=== PATIENT | female | born 1965 | race Caucasian/White ===

== ENCOUNTER 2022-07-09 08:17 | Outpatient (CLI) | payer BC, SELFPAY ==
[2022-07-09 10:41] LABS: Chloride* 106 mmol/L (96-114)
[2022-07-09 10:42] LABS: Potassium* 4.5 mmol/L (3.6-5.1); Sodium* 141 mmol/L (135-149)
[2022-07-09 10:44] LABS: Cholesterol* 217 mg/dL (90-199); Creatinine* 0.8 mg/dL (0.5-1.5); Estimated Glomerular Filt Rate 86 ml/min
[2022-07-09 10:45] LABS: Blood Urea Nitrogen* 18 mg/dL (7-30); Calcium* 9.6 mg/dL (8.4-10.6); Glucose* 99 mg/dL (60-115); HDL Cholesterol* 67 mg/dL (>=50); LDL Cholesterol Calculated 131 mg/dL (<100); Triglycerides* 96 mg/dL (40-149)
[2022-07-09 11:00] LABS: Carbon Dioxide* 29 mmol/L (20-32)
== END 2022-07-09 08:18 | disposition home or self-care (01) ==
PROVIDERS: PCP Emergency Medicine; Visit Provider Emergency Medicine
DX: R73.01 Impaired fasting glucose (principal); Z13.6 Encounter for screening for cardiovascular disorders
CPT/HCPCS: 80048; 80061

== ENCOUNTER 2022-07-29 15:22 | Outpatient (CLI) | payer BC, SELFPAY ==
--- NOTE | 2022-07-29 15:30 | CRLHL7_ITS ---
For Patients: As a result of the Century Cures Act, medical imaging exams and procedure reports are released immediately into your electronic medical record. You may view this report before your referring provider. If you have questions, please contact your health care provider. INDICATION: Left lower quadrant abdominal pain.. TECHNIQUE: CT abdomen and pelvis acquired with 74 cc Isovue 370 IV contrast. COMPARISON: None. FINDINGS: Lower chest: Unremarkable. Liver: Unremarkable. Normal in size and attenuation. No suspicious masses. Gallbladder and bile ducts: Unremarkable. No stones or inflammation. No biliary dilatation. Pancreas: Unremarkable. No mass or inflammation. Spleen: Unremarkable. Normal in size. No masses. Adrenal glands: Unremarkable. No nodules. Kidneys: Unremarkable. No suspicious masses, stones, or hydronephrosis. GI tract: No bowel obstruction identified. Normal appendix. Vasculature: Abdominal aorta is normal in caliber. Mesenteric arteries are patent. Lymph nodes: No lymphadenopathy. Peritoneum/Abdominal Wall: 1.4 centimeter ovoid structure in the left lateral abdomen adjacent to the proximal sigmoid colon. Peripheral rim hyperdensity with central dot. Findings consistent with epiploic appendagitis. No sign of mass or infiltration. No free air or significant free fluid. Pelvis: Unremarkable. Bones: Unremarkable for age. IMPRESSION: Epiploic appendagitis along the proximal sigmoid colon. Please note that all CT scans at this facility use dose modulation, iterative reconstruction, and/or weight-based dosing when appropriate to reduce radiation dose to as low as reasonably achievable. Dictated by Maris Louis MD @ 07/29/2022 6:06:18 PM (Electronically Signed)
== END 2022-07-29 15:23 | disposition home or self-care (01) ==
PROVIDERS: PCP Emergency Medicine; Visit Provider Nurse Practitioner Family
DX: R10.32 Left lower quadrant pain (principal); K63.89 Other specified diseases of intestine
CPT/HCPCS: 74177; 85025; Q9967

== ENCOUNTER 2022-09-09 13:03 | Outpatient (CLI) | payer BC, SELFPAY ==
--- NOTE | 2022-09-09 13:20 | CRLHL7_ITS ---
For Patients: As a result of the Century Cures Act, medical imaging exams and procedure reports are released immediately into your electronic medical record. You may view this report before your referring provider. If you have questions, please contact your health care provider. BILATERAL SCREENING MAMMOGRAM WITH COMPUTER-AIDED DETECTION AND TOMOSYNTHESIS TECHNIQUE: CC and MLO views were obtained. These mammographic images have been obtained using full-field digital technique. These mammographic images were interpreted with the benefit of computer-aided detection. Breast Tomosynthesis was used in this interpretation. COMPARISON FILM: 06/11/21, 07/09/16, 05/23/14. FINDINGS: The breasts are heterogeneously dense, which may obscure small masses. IMPRESSION: There is no radiographic evidence for malignancy. ASSESSMENT: BI-RADS Category 2: Benign RECOMMENDATION: Routine screening mammogram in 1 year. A lay language report of this examination will be provided to the patient. Tee Lema M.D. Diagnostic Radiologist [email or web address] Transcribed: 1:06 p.m. PT/Dictated by: Tee Lema MD @ 09/10/2022 11:18:00 AM (Electronically Signed)
== END 2022-09-09 13:04 | disposition home or self-care (01) ==
LOC: MAMMO 13:05
PROVIDERS: PCP Emergency Medicine; Visit Provider Emergency Medicine
DX: Z12.31 Encounter for screening mammogram for malignant neoplasm of breast (principal); R92.2 Inconclusive mammogram
CPT/HCPCS: 77063; 77067

== ENCOUNTER 2022-10-10 12:00 | Outpatient (CLI) | payer BC, SELFPAY | END 2022-10-10 12:01 | disposition home or self-care (01) | LOC: OP CLINIC 12:00 | PROVIDERS: PCP Emergency Medicine; Visit Provider Internal Medicine | DX: Z12.11 Encounter for screening for malignant neoplasm of colon (principal) | CPT/HCPCS: 45378; J2250; J3010 ==

== ENCOUNTER 2023-01-08 11:10 | Outpatient (CLI) | payer BC, SELFPAY ==
[2023-01-08 13:52] LABS: Strep A DNA Probe* NOT DETECTED (Not Detectd)
== END 2023-01-08 11:11 | disposition home or self-care (01) ==
LOC: KYNREF 11:10
PROVIDERS: PCP Emergency Medicine; Visit Provider Nurse Practitioner Family
DX: J02.9 Acute pharyngitis, unspecified (principal)
CPT/HCPCS: 87651

== ENCOUNTER 2023-07-08 13:43 | Outpatient (CLI) | payer BC, SELFPAY | END 2023-07-08 13:44 | disposition home or self-care (01) | PROVIDERS: PCP Emergency Medicine; Visit Provider Emergency Medicine | DX: R73.01 Impaired fasting glucose (principal); Z13.220 Encounter for screening for lipoid disorders | CPT/HCPCS: 80048; 80061 ==

== ENCOUNTER 2023-08-12 14:19 | Outpatient (CLI) | payer BC, SELFPAY | END 2023-08-12 14:20 | disposition home or self-care (01) | LOC: LKVREF 14:19 | PROVIDERS: PCP Emergency Medicine; Visit Provider Emergency Medicine | DX: R10.9 Unspecified abdominal pain (principal) | CPT/HCPCS: 80076 ==

== ENCOUNTER 2023-09-30 13:28 | Outpatient (CLI) | payer BC, SELFPAY ==
--- NOTE | 2023-09-30 13:40 | MM_ITS ---
Patient: GLENROY GALVAN Facility:?[facility] Patient ID:?[id number] Site Patient ID:?[id number]. Site :?[id number] Study:?XRay-Breast Bilateral 3D W/CAD-09/30/2023 2:01:14 PM Ordering Physician:?Elena Lyons Final Report: BILATERAL SCREENING MAMMOGRAM WITH COMPUTER-AIDED DETECTION AND TOMOSYNTHESIS TECHNIQUE: CC and MLO views were obtained. These mammographic images have been obtained using full-field digital technique. These mammographic images were interpreted with the benefit of computer-aided detection. Breast Tomosynthesis was used in this interpretation. COMPARISON FILM: 09/09/22, 06/11/21, 08/13/17. FINDINGS: The breasts are heterogeneously dense, which may obscure small masses. IMPRESSION: There is no radiographic evidence for malignancy. ASSESSMENT: BI-RADS Category 2: Benign RECOMMENDATION: Routine screening mammogram in 1 year. A lay language report of this examination will be provided to the patient. eTe Lema M.D. Diagnostic Radiologist [email or web address] DSM/sp R& Transcribed: 6:43 p.m. SP/Dictated by: Tee Lema MD @ 10/01/2023 12:45:00 PM Signed by:?Tee Lema MD @10/02/2023 11:26:42 AM (Electronic Signature)
--- NOTE | 2023-09-30 14:00 | XR_ITS ---
Patient: GLENROY GALVAN Facility:?[facility] Patient ID:?[id number] Site Patient ID:?[id number]. Site :?1965 Study:?DEXA-Bone Density -09/30/2023 4:09:10 PM Ordering Physician:SHASHI Final Report: DXA BONE MINERAL DENSITY STUDY Current height (in): 67.0. Weight (lb): 155.0. Menopause age: 55. Ethnicity: White. Reason for exam: Low bone density, screening. 1. Have you had a previous hip or vertebral fracture? No. 2. Have you had any fractures during your adult life which did not result from significant trauma (e.g., auto accident)? No. 3. Did either of your parents have a hip fracture? No. 4. Do you smoke? No. 5. Have you ever taken Glucocorticoids? No. 6. Do you have rheumatoid arthritis? No. 7. Do you have secondary osteoporosis? No. 8. Do you drink 3 or more alcoholic drinks per day? No. 9. Are you being treated for osteoporosis? *No. 10. Have you ever taken any of the following medications: Actonel, Evista, Fosamax, Miacalcin, Reclast, Boniva, Forteo, HRT (i.e. estrogen/hormone therapy), Protelos, Prolia, Vitamin D, Calcium, other ? please specify. ANSWER: Yes, vitamin D, calcium. 11. Do you have any of the following medical conditions: Anorexia or bulimia, asthma or emphysema, end stage renal disease, hyperparathyroidism, any seizure disorders, cancer, inflammatory bowel diseases, hysterectomy, other ? please specify. ANSWER: Yes, asthma or emphysema, hysterectomy. 12. What was your maximum height (inches)? 67. 13. Do you perform weight bearing exercise regularly? No. 14. Do you regularly consume dairy products? Yes. 15. Do you drink caffeinated beverages? Yes. 16. At what age did your period start? 13. 17. Are you premenopausal? No. 18. How many full-term pregnancies have you had? 2. 19. Have you ever missed your period for more than 6 months in a row (not including or menopause)? No. TECHNIQUE: Bone mineral density study was performed using the [employer]. FINDINGS: The results of the study expressed as bone mineral density (BMD) are as follows: Lumbar spine L1 to L4: BMD: 1.148 g/cm2. T-score: 0.9. Z-score: 2.2. Neck Left: BMD: 0.813 g/cm2. T-score: -0.3. Z-score: 0.9 Right: BMD: 0.694 g/cm2. T-score: -1.4. Z-score: -0.2 Total Left: BMD: 0.899 g/cm2. T-score: -0.3. Z-score: 0.5 Right: BMD: 0.908 g/cm2. T-score: -0.3. Z-score: 0.6 IMPRESSION: Osteopenia. *Comparison exams done prior to 11/2019 were performed on different unit, [facility]. COMPARISON: Compared with scan of 12/13/2020, the bone mineral density has increased by 1.7 percent at the spine and decreased by 0.8 percent at the hip. FRAX 10-year Fracture Risk Major Osteoporotic Fracture: 7.3 percent Hip Fracture: 0.6 percent Reported Risk Factors: [place] () Neck BMD = 0.694, BMI = 24.3 Tee Lema M.D. Diagnostic Radiologist [email or web address] DSM/idrisw: D& Transcribed: 2:23 pm DW/Dictated by: Tee Lema MD @ 10/01/2023 8:22:00 AM Signed by:?Tee Lema MD @10/01/2023 2:25:30 PM (Electronic Signature)
== END 2023-09-30 13:29 | disposition home or self-care (01) ==
LOC: MAMMO 13:29
PROVIDERS: PCP Emergency Medicine; Visit Provider Emergency Medicine
DX: Z12.31 Encounter for screening mammogram for malignant neoplasm of breast (principal); R92.2 Inconclusive mammogram; Z13.820 Encounter for screening for osteoporosis; M85.88 Other specified disorders of bone density and structure, other site; M85.9 Disorder of bone density and structure, unspecified
CPT/HCPCS: 77063; 77067; 77080

== ENCOUNTER 2023-11-25 10:54 | Outpatient (CLI) | payer BC, SELFPAY | END 2023-11-25 10:55 | disposition home or self-care (01) | LOC: LKVREF 10:55 | PROVIDERS: PCP Emergency Medicine; Visit Provider Emergency Medicine | DX: F32.1 Major depressive disorder, single episode, moderate (principal); Z13.29 Encounter for screening for other suspected endocrine disorder | CPT/HCPCS: 84443 ==

== ENCOUNTER 2023-12-11 09:39 | Outpatient (CLI) | payer BC, SELFPAY ==
--- NOTE | 2023-12-11 09:45 | CRLHL7_ITS ---
For Patients: As a result of the Cures Act, medical imaging exams and procedure reports are released immediately into your electronic medical record. You may view this report before your referring provider. If you have questions, please contact your health care provider. DIGITAL DIAGNOSTIC LEFT MAMMOGRAM USING TOMOSYNTHESIS AND COMPUTER-AIDED DETECTION LEFT BREAST ULTRASOUND CLINICAL HISTORY: LEFT breast pain. COMPARISON: 01/15/2010 ultrasound, mammogram 09/30/2023, 09/09/2022, 06/11/2021. TECHNIQUE: Digital LEFT mammogram in two projections with computer-aided detection. Tomosynthesis was used in this interpretation. Real-time ultrasound imaging of LEFT breast with imaging documentation. Scanning was performed by both the technologist and the radiologist. BREAST COMPOSITION: There are areas of scattered fibroglandular density. FINDINGS: 3D CC/MLO LEFT breast mammogram images submitted. Persistent nodular density within the upper inner quadrant LEFT breast. No architectural distortion. No suspicious calcifications. No adenopathy. Targeted ultrasound regarding the nodular density performed in the upper inner quadrant LEFT breast. At 11 o`clock 7 cm from the nipple, there is a circumscribed ovoid anechoic cyst measuring 14 x 5 x 10 millimeters. Targeted ultrasound performed in the area of pain at 4 o`clock 2 cm from the nipple. At mid depth there is a hypoechoic solid nodule measuring 5 x 5 x 5 millimeters. IMPRESSION: Indeterminate hypoechoic solid nodule LEFT breast 4 o`clock 2 cm from the nipple measuring 5 millimeters. RECOMMENDATIONS: Ultrasound-guided core needle biopsy. Results and recommendations discussed with the patient. BI-RADS Category 4: Suspicious A lay language report of this examination will be provided to the patient. Dictated by Tee Lema MD @ 12/11/2023 11:10:46 AM jj/Dictated by: Tee Lema MD @ 12/11/2023 11:10:00 AM (Electronically Signed)
--- NOTE | 2023-12-11 10:15 | CRLHL7_ITS ---
For Patients: As a result of the Century Cures Act, medical imaging exams and procedure reports are released immediately into your electronic medical record. You may view this report before your referring provider. If you have questions, please contact your health care provider. PLEASE SEE DIGITAL DIAGNOSTIC LEFT MAMMOGRAM PERFORMED SAME DAY CRL:juany harrington/Dictated by: Tee Lema MD @ 12/11/2023 11:11:00 AM (Electronically Signed)
== END 2023-12-11 09:40 | disposition home or self-care (01) ==
LOC: MAMMO 09:40
PROVIDERS: PCP Emergency Medicine; Visit Provider Emergency Medicine
DX: N64.4 Mastodynia (principal); N63.20 Unspecified lump in the left breast, unspecified quadrant
CPT/HCPCS: 76642; 77065; G0279

== ENCOUNTER 2023-12-28 09:05 | Outpatient (CLI) | payer BC, SELFPAY ==
--- NOTE | 2023-12-28 09:15 | CRLHL7_ITS ---
For Patients: As a result of the Century Cures Act, medical imaging exams and procedure reports are released immediately into your electronic medical record. You may view this report before your referring provider. If you have questions, please contact your health care provider. ULTRASOUND-GUIDED BREAST BIOPSY AND POST-BIOPSY DIGITAL MAMMOGRAM FOR BIOPSY MARKER PLACEMENT CLINICAL HISTORY: Indeterminate nodule. COMPARISON STUDIES: 12/11/2023. TECHNIQUE: Real-time ultrasound with image documentation was used for targeting the breast lesion. Core biopsy specimens were obtained using an automated gun with a 18-gauge biopsy needle. Post-biopsy CC and ML digital mammograms were obtained to document position of the biopsy marker. CONSENT and TIME OUT: The procedure, risks, and alternatives were explained to the patient and a consent was signed. Broussard Protocol was followed including pre-procedure verification that relevant information/documentation was available, reviewed and properly matched to the patient; consent accurate and complete; and equipment and supplies available. Time Out was conducted just prior to starting procedure to verify the four required elements: patient identity, correct side/site marked (if applicable), procedure, relevant images/results properly labeled and displayed (if applicable). PROCEDURE: The patient was positioned supine on the ultrasound table. The breast was prepped with ChloraPrep. 8 cc of 1 percent lidocaine used for local anesthesia. Core samples were obtained. A sterile metal biopsy clip was placed percutaneously to darian the lesion position within the breast. The specimens were placed in 10% formalin and sent to the pathology department. Pressure was held on the biopsy site until all bleeding subsided. The skin incision was closed with Steri-Strips. An ice pack was positioned over the biopsy site. Post-biopsy instructions were reviewed with the patient, and a written copy was given to her. LATERALITY: LEFT breast. LESION: Ovoid hypoechoic nodule measuring 5 x 5 x 5 millimeter at 4 o`clock 2 cm from the nipple. SUSPICION FOR MALIGNANCY: Intermediate. NUMBER OF SAMPLES: 5. BIOPSY CLIP SHAPE: Oval. PROXIMITY OF CLIP TO TARGET: Immediately adjacent to the lesion. IMPRESSION: Ultrasound-guided breast biopsy. When the pathology report is available, an addendum to this report will be made. ACR not applicable Dictated by Tee Lema MD @ 12/28/2023 10:19:06 AM jj/Dictated by: Tee Lema MD @ 12/28/2023 10:19:00 AM (Electronically Signed)
--- NOTE | 2023-12-28 10:00 | CRLHL7_ITS ---
For Patients: As a result of the Century Cures Act, medical imaging exams and procedure reports are released immediately into your electronic medical record. You may view this report before your referring provider. If you have questions, please contact your health care provider. PLEASE SEE ULTRASOUND-GUIDED LEFT BREAST BIOPSY PERFORMED SAME DAY CRL:juany harrington/Dictated by: Tee Lema MD @ 12/28/2023 10:19:00 AM (Electronically Signed)
== END 2023-12-28 09:06 | disposition home or self-care (01) ==
PROVIDERS: PCP Emergency Medicine; Visit Provider Emergency Medicine
DX: N63.20 Unspecified lump in the left breast, unspecified quadrant (principal); R92.8 Other abnormal and inconclusive findings on diagnostic imaging of breast
CPT/HCPCS: 19083; 77065; 88305; A4648; A4649

== ENCOUNTER 2024-01-13 14:00 | Outpatient (CLI) | payer BC, SELFPAY | END 2024-01-13 14:01 | disposition home or self-care (01) | LOC: LKVREF 14:01 | PROVIDERS: PCP Emergency Medicine; Visit Provider Emergency Medicine | DX: M79.10 Myalgia, unspecified site (principal); E78.5 Hyperlipidemia, unspecified | CPT/HCPCS: 82550 ==

== ENCOUNTER 2025-04-24 09:54 | Outpatient (CLI) | payer BC, SELFPAY | END 2025-04-24 09:55 | disposition home or self-care (01) | PROVIDERS: Visit Provider Family Medicine | DX: Z00.00 Encounter for general adult medical examination without abnormal findings (principal); E78.5 Hyperlipidemia, unspecified; M85.80 Other specified disorders of bone density and structure, unspecified site; Z11.59 Encounter for screening for other viral diseases | CPT/HCPCS: 80053; 80061; 82306; 86803 ==